=== PATIENT | female | born 1995 ===

== ENCOUNTER 2023-07-17 17:19 | Emergency (ER) | payer SELFPAY ==
[~2023-07-17] VITALS: Ht 160 cm; Wt 55.5 kg
[~2023-07-17 17:19] MED LIST: AMOXICILLIN 50500 MG PO; ATARAX 25MG25 MG/TAB PO; BIRTH CONTROL PILL PO; CEFTIN 250250 MG/TAB PO; CEPHALEXIN500 M1 PO; DOXYCYCLINE 10100 MG PO; EFFEXOR XR75 MG/CAP PO; FERROUS SU325 MG/TAB PO; FLAGYL500 MG PO; IBU600 MG PO; IBU800 M1 PO; IMPLANON68 MG; IMPLANON68 MG ID; LIDO4 TOP; MACROBID 1100 MG/CAP PO; MAGIC MOUTH PO; MIRENA52 MG IU; MONODOX100 PO; NAPROSYN500 MG PO; NO HOME MEDICATIONS; NORCO 325 MG-51 TAB PO; OMNICEF 300MG300 MG PO; PEN-VEE K500 MG PO; PHENERGAN 25 TA25 MG PO; PRENATAL MVI PO; PRENATAL1 TA1 PO; PROMETHAZINE12.5 M5 PO; TAMIFLU 75MG75 MG PO; TRI-SPRINTEC 281 TAB PO; TYLENOL W/COD1 UDTAB PO; ZOVIRAX 800MG800 MG PO; ZOVIRAX400 MG PO; ZOVIRAX800 MG PO; [UNRECOGNIZED DRUG - OTHER] MM
[2023-07-17] MEDS ORDERED: Ondansetron 4 MG/2 ML VIAL IV ONE (17:45)
[2023-07-17] MEDS ORDERED: NS 1,000 ML IV ONE (17:45)
[2023-07-17 18:11] LABS: BASO % 0.3 % (0.0-2.0); EOS # 0.1 K/mm3 (0.0-0.7); EOS % 0.7 % (0.0-4.0); GRAN # 4.9 K/mm3 (1.4-6.5); GRAN % 71.7 % (42.2-75.2); LYMPH # 1.5 K/mm3 (1.2-3.4); LYMPH % 21.1 % (20.0-51.0); MEAN CELL VOLUME 83 fl (80.0-100.0); MEAN CORPUSCULAR HEMOGLOBIN 25 pg (27-31); MEAN CORPUSCULAR HGB CONC 30 g/dl (33.0-37.0); MEAN PLATELET VOLUME 9.6 fl (7.4-10.4); MONO # 0.4 K/mm3 (0.1-0.6); MONO % 6.1 % (1.7-9.3); PLATELET COUNT 337 K/mm3 (130-400); RED BLOOD COUNT 4.03 M/mm3 (4.10-5.30); REDCELL DISTRIBUTION WIDTH-CV 14.6 % (11.5-14.5)
[2023-07-17 18:14] LABS: HEMATOCRIT 33.5 % (37.0-47.0)
[2023-07-17 18:39] LABS: ALBUMIN 4.3 gm/dL (3.5-5.0); BILIRUBIN,TOTAL 0.2 mg/dL (0.2-1.2); CALCIUM 9.5 mg/dL (8.4-10.2); CREATININE, serum 0.9 mg/dL (0.57-1.11); POTASSIUM 3.8 mmol/L (3.5-4.5); TOTAL PROTEIN 7.5 gm/dL (6.2-8.1)
[2023-07-17 20:05] LABS: TRICYCLIC ANTIDEPRESS URINE NEGATIVE (NEGATIVE)
[2023-07-17 20:44] VITALS: BP 99/64; PULSE 89; TEMP 97.5
== END 2023-07-17 20:54 | disposition home or self-care (01) ==
LOC: COL.ER 17:19
PROVIDERS: Nurse Practitioner Primary Care
DX: F19.10 Other psychoactive substance abuse, uncomplicated (principal); D64.9 Anemia, unspecified
CPT/HCPCS: J0780; J2405; J7030